=== PATIENT | female | born 1980 | race Caucasian/White ===

== ENCOUNTER 2018-01-19 17:14 | Emergency (ER) | payer SELFPAY ==
[2018-01-19] MEDS ORDERED: Diphtheria,Pertussis(Acell),Tetanus Vaccine 0.5 ML Syringe IM ONE (17:26)
[2018-01-19] MEDS ORDERED: Lidocaine 1% 20 ML MDV INJECT ONE (17:26)
--- NOTE | 2018-01-19 17:28 | EDM.PDOC ---
ED HPI GENERAL MEDICAL PROBLEM - General Chief Complaint: Laceration Stated Complaint: CUT LEFT ANN MARIE Time Seen by Provider: 01/19/18 17:27 Source of Information: Reports: Patient - History of Present Illness INITIAL COMMENTS - FREE TEXT/NARRATIVE: HISTORY AND PHYSICAL: History of present illness: [Patient cut the dorsum of her left thumb just prior to arrival tendon function intact pre-and post suture flexor and extensor entire limb neurovascularly intact No fever nausea vomiting chills sweats no redness warmth pus drainage ] Review of systems: As per history of present illness and below otherwise all systems reviewed and negative. Past medical history: As per history of present illness and as reviewed below otherwise noncontributory. Surgical history: As per history of present illness and as reviewed below otherwise noncontributory. Social history: No reported history of drug or alcohol abuse. Family history: As per history of present illness and as reviewed below otherwise noncontributory. Physical exam: HEENT: Atraumatic, normocephalic, pupils reactive, negative for conjunctival pallor or scleral icterus, mucous membranes moist, throat clear, neck supple, nontender, trachea midline. Lungs: Clear to auscultation, breath sounds equal bilaterally, chest nontender. Heart: S1S2, regular, negative for clicks, rubs, or JVD. Abdomen: Soft, nondistended, nontender. Negative for masses or hepatosplenomegaly. Negative for costovertebral tenderness. Pelvis: Stable nontender. Genitourinary: Deferred. Rectal: Deferred. Extremities: Atraumatic, negative for cords or calf pain. Neurovascular unremarkable. Neuro: Awake, alert, oriented. Cranial nerves II through XII unremarkable. Cerebellum unremarkable. Motor and sensory unremarkable throughout. Exam nonfocal. Skin as per history of present illness Left hand as per history of present illness 2 cm linear laceration Diagnostics: [Clinical ] Therapeutics: []T dap Lidocaine Wound cleansed and explored Tendon function intact flexor extensor pre-and post suture Standard wound care instructions #3 5-0 Prolene sutures interrupted Splint to promote healing Impression: [ 2 cm linear laceration ] Definitive disposition and diagnosis as appropriate pending reevaluation and review of above. left thumb laceration Pain Score (Numeric/FACES): 4 - Related Data Allergies Allergy/AdvReac Type Severity Reaction Status Date / Time No Known Allergies Allergy Verified 01/19/18 17:27 Home Meds: Home Meds Multivitamin [Multivitamins] 1 tab PO DAILY 01/19/18 [History] Naproxen Sodium [Aleve] 5 tab PO DAILY 01/19/18 [History] Peracardium 60 mg PO DAILY 01/19/18 [History] Rivaroxaban [Xarelto] 10 mg PO DAILY 01/19/18 [History] Sertraline [Zoloft] 200 mg PO DAILY 01/19/18 [History] ED ROS GENERAL - Review of Systems Review Of Systems: ROS reveals no pertinent complaints other than HPI. ED EXAM, SKIN/RASH Exam: See Below Course - Vital Signs Last Recorded V/S: Last Vital Signs Temp 97.6 F 01/19/18 17:25 Pulse 95 01/19/18 17:25 Resp 16 01/19/18 17:25 BP 131/96 H 01/19/18 17:25 Pulse Ox 95 01/19/18 17:25 - Orders/Labs/Meds Orders: Active Orders 24 hr Category Date Time Status Vaccines to be Administered [RC] PER UNIT ROUTINE Care 01/19/18 17:27 Active Meds: Medications Discontinued Medications Generic Name Dose Route Start Last Admin Trade Name Freq PRN Reason Stop Dose Admin Bacitracin 1 dose 01/19/18 17:44 Bacitracin Oint 1 Gm TOP 01/19/18 17:45 ONETIME ONE Diphtheria/Tetanus/Acell Pertussis 0.5 ml 01/19/18 17:26 01/19/18 17:36 Adacel IM 01/19/18 17:27 0.5 ml .ONCE ONE Administration Lidocaine HCl 20 ml 01/19/18 17:26 01/19/18 17:35 Xylocaine 1% INJECT 01/19/18 17:27 20 ml ONETIME ONE Administration Departure - Departure Time of Disposition: 17:47 Disposition: Home, Self-Care 01 Condition: Good Clinical Impression: Laceration - Discharge Information Referrals: PCP,None [Primary Care Provider] - Forms: ED Department Discharge Additional Instructions: Standard wound care instructions Keep wound clean and dry for 48 hours Neosporin bandage Splint to promote healing and protect wound for 48-72 hours Suture removal in 10 day Return to emergency room with redness warmth or pus drainage should this develop No indication for antibiotics at this time The following information is given to patients seen in the emergency department who are being discharged to home. This information is to outline your options for follow-up care. We provide all patients seen in our emergency department with a follow-up referral. The need for follow-up, as well as the timing and circumstances, are variable depending upon the specifics of your emergency department visit. If you don't have a primary care physician on staff, we will provide you with a referral. We always advise you to contact your personal physician following an emergency department visit to inform them of the circumstance of the visit and for follow-up with them and/or the need for any referrals to a consulting specialist. The emergency department will also refer you to a specialist when appropriate. This referral assures that you have the opportunity for follow-up care with a specialist. All of these measure are taken in an effort to provide you with optimal care, which includes your follow-up. Under all circumstances we always encourage you to contact your private physician who remains a resource for coordinating your care. When calling for follow-up care, please make the office aware that this follow-up is from your recent emergency room visit. If for any reason you are refused follow-up, please contact the [facility] emergency department at and asked to speak to the emergency department charge nurse. - My Orders Last 24 Hours: My Active Orders 01/19/18 17:27 Vaccines to be Administered [RC] PER UNIT ROUTINE - Assessment/Plan Last 24 Hours: My Active Orders 01/19/18 17:27 Vaccines to be Administered [RC] PER UNIT ROUTINE
[2018-01-19] MEDS ORDERED: Bacitracin Oint 1 GM U/D Packet TOP ONE (17:44)
== END 2018-01-19 17:54 | disposition home or self-care (01) ==
LOC: MW.ED 17:14
DX: S61.012A Laceration without foreign body of left thumb without damage to nail, initial encounter (principal); Z23 Encounter for immunization; Z79.899 Other long term (current) drug therapy; W26.0XXA Contact with knife, initial encounter
CPT/HCPCS: 90471; 90715; 99283-25

== ENCOUNTER 2018-04-24 18:23 | Emergency (ER) | payer OTHER ==
--- NOTE | 2018-04-24 19:09 | EDM.PDOC ---
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 Past medical history: As per history of present illness and as reviewed below otherwise noncontributory. Surgical history: As per history of present illness and as reviewed below otherwise noncontributory. Social history: No reported history of drug or alcohol abuse. Family history: As per history of present illness and as reviewed below otherwise noncontributory. Physical exam: Alert and oriented female answering questions appropriately in full sentences without any shortness of breath. Nontoxic in appearance HEENT: Atraumatic, normocehpalic, pupils reactive, negative for conjunctival pallor or scleral icterus, mucous membranes moist, throat clear, neck supple, nontender, trachea midline. Lungs: Clear to auscultation, breath sounds equal bilaterally, chest non tender. Heart: S1S2, regular, negative for clicks, rubs, or JVD. Abdomen: Soft, nondistended, nontender. Negative for masses or hepatossplenmegaly.Positive for left costovertebral tenderness. Pelvis: Stable nontender. Genitourinary: Deferred. Rectal: Deferred Extremities: Atraumatic, negative for cords or calf pain. Neurovascular unremarkable. Neuro: Awake, alert, oriented. Cranial nerves II through XII unremarkable. Cerebellum unremarkable. Motor and sensory unremarkable throughout. Exam nonfocal. Discussed with patient that her urine is positive for bacteria and nitrates will send for culture and notify her if this medication is not appropriate Diagnostics: []UA Urine culture Therapeutics: [] Impression: [Acute cystitis Plan: []Discharge Bactrim DS 1 twice a day 7 days Pyridium 100 mg 3 times a day 3 days Increase fluid intake Follow-up with your primary care provider Definitive disposition and diagnosis as appropriate pending reevaluation and review of above. Onset: Gradual Duration: Week(s): (3) Location: Reports: Back Bladder Pain Score (Numeric/FACES): 4 - Related Data Allergies Allergy/AdvReac Type Severity Reaction Status Date / Time No Known Allergies Allergy Verified 04/24/18 18:42 Home Meds: Home Meds Multivitamin [Multivitamins] 1 tab PO DAILY 01/19/18 [History] Naproxen Sodium [Aleve] 5 tab PO DAILY 01/19/18 [History] Peracardium 60 mg PO DAILY 01/19/18 [History] Rivaroxaban [Xarelto] 10 mg PO DAILY 01/19/18 [History] Sertraline [Zoloft] 200 mg PO DAILY 01/19/18 [History] Phenazopyridine HCl [Pyridium] 100 mg PO TID #9 tablet 04/24/18 [Rx] Sulfamethoxazole/Trimethoprim [Bactrim Ds Tablet] 1 each PO BID #20 tablet 04/24 [Rx] Past Medical History Cardiovascular 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: Blood Clots/VTE/DVT, Hypertension Respiratory 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: PE 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 SPECIALIST 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: Neurological 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: CVA, Headaches, Chronic Psychiatric 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: Anxiety, Depression Other Hematologic History: Lupus - Infectious Disease History Infectious Disease 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: Chicken Pox, Measles, Mumps - Past Surgical History HEENT Surgical 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: Myringotomy w Tube(s), Naso-Sinus Surgery Female Surgical 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: Hysterectomy, Tubal Ligation Musculoskeletal Surgical 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: Shoulder Replacement, Shoulder Surgery Social & Family History - Family History Family Medical History: Unobtainable Other Dermatologic Family History: adopted - Tobacco Use Smoking Status *Q: Never Smoker Second Hand Smoke Exposure: No - Caffeine Use Caffeine Use: Reports: None - Recreational Drug Use Recreational Drug Use: No ED ROS GENERAL - Review of Systems Review Of Systems: ROS reveals no pertinent complaints other than HPI. ED EXAM, GI/ABD - Physical Exam Exam: See Below Course - Vital Signs Last Recorded V/S: Last Vital Signs Temp 36.3 C 04/24/18 18:36 Pulse 73 04/24/18 18:36 Resp 20 04/24/18 18:36 BP 134/76 04/24/18 18:36 Pulse Ox 96 04/24/18 18:36 - Orders/Labs/Meds Orders: Active Orders 24 hr Category Date Time Status CULTURE URINE [RM] Stat Lab 04/24/18 19:00 Received UA W/MICROSCOPIC [URIN] Stat Lab 04/24/18 19:00 Ordered Labs: Laboratory Tests 04/24/18 Range/Units 19:00 Urine Color ORANGE Urine Appearance SLT CLOUDY Urine pH 5.0 (5.0-8.0) Ur Specific [place] >= 1.030 (1.001-1.035) Urine Protein 100 (NEGATIVE) mg/dL Urine Glucose (UA) 250 H (NEGATIVE) mg/dL Urine Ketones 15 H (NEGATIVE) mg/dL Urine Occult Blood LARGE H (NEGATIVE) Urine Nitrite POSITIVE H (NEGATIVE) Urine Bilirubin MODERATE H (NEGATIVE) Urine Ictotest NEGATIVE Urine Urobilinogen >=8.0 H (<2.0) EU/dL Ur Leukocyte Esterase MODERATE (NEGATIVE) Urine RBC 10-12 (0-2/HPF) Urine WBC 75-100 (0-5/HPF) Ur Epithelial Cells MODERATE (NONE-FEW) Urine Bacteria 1+ H (NEGATIVE) Urine Mucus MODERATE (NONE-MOD) Departure - Departure Time of Disposition: 19:51 Disposition: Home, Self-Care 01 Condition: Good Clinical Impression: UTI, Urinary tract infectious disease, Cystitis - Discharge Information *PRESCRIPTION DRUG MONITORING PROGRAM REVIEWED*: Not Applicable *COPY OF PRESCRIPTION DRUG MONITORING REPORT IN PATIENT [place]: Not Applicable Prescriptions: Phenazopyridine HCl [Pyridium] 100 mg PO TID #9 tablet Sulfamethoxazole/Trimethoprim [Bactrim Ds Tablet] 1 each PO BID #20 tablet Referrals: PCP,None [Primary Care Provider] - Forms: ED Department Discharge Additional Instructions: The following information is given to patients seen in the emergency department who are being discharged to home. This information is to outline your options for follow-up care. We provide all patients seen in our emergency department with a follow-up referral. The need for follow-up, as well as the timing and circumstances, are variable depending upon the specifics of your emergency department visit. If you don't have a primary care physician on staff, we will provide you with a referral. We always advise you to contact your personal physician following an emergency department visit to inform them of the circumstance of the visit and for follow-up with them and/or the need for any referrals to a consulting specialist. The emergency department will also refer you to a specialist when appropriate. This referral assures that you have the opportunity for followup care with a specialist. All of these measure are taken in an effort to provide you with optimal care, which includes your followup. Under all circumstances we always encourage you to contact your private physician who remains a resource for coordinating your care. When calling for followup care, please make the office aware that this follow-up is from your recent emergency room visit. If for any reason you are refused follow-up, please contact the [facility] emergency department at and asked to speak to the emergency department charge nurse. []Discharge Bactrim DS 1 twice a day 7 days Pyridium 100 mg 3 times a day 3 days Increase fluid intake Follow-up with your primary care provider Return to the emergency room as directed and discussed - My Orders Last 24 Hours: My Active Orders 04/24/18 19:00 CULTURE URINE [RM] Stat - Assessment/Plan Last 24 Hours: My Active Orders 04/24/18 19:00 CULTURE URINE [RM] Stat
== END 2018-04-24 20:08 | disposition home or self-care (01) ==
LOC: MW.ED 18:23
DX: N30.00 Acute cystitis without hematuria (principal); Z79.899 Other long term (current) drug therapy
CPT/HCPCS: 81001; 87086; 99283

== ENCOUNTER 2018-11-09 14:46 | Emergency (ER) | payer OTHER ==
[2018-11-09] MEDS ORDERED: Ibuprofen 800 MG Tab PO ONE (15:15)
--- NOTE | 2018-11-09 16:07 | EDM.PDOC ---
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 She states it hurts severely to walk. Any numbness or tingling no ankle pain or any other injuries. Review of systems: As per history of present illness and below otherwise all systems reviewed and negative. Past medical history: As per history of present illness and as reviewed below otherwise noncontributory. Surgical history: As per history of present illness and as reviewed below otherwise noncontributory. Social history: No reported history of drug or alcohol abuse. Family history: As per history of present illness and as reviewed below otherwise noncontributory. Physical exam: General: Well developed, well nourished in NAD HEENT: Atraumatic, normocephalic, pupils reactive, negative for conjunctival pallor or scleral icterus, mucous membranes moist, throat clear, neck supple, nontender, trachea midline. Lungs: Clear to auscultation, breath sounds equal bilaterally, chest nontender. Heart: S1S2, regular, negative for clicks, rubs, or JVD. Abdomen: NABS, Soft, nondistended, nontender. Negative for masses or hepatosplenomegaly. Negative for costovertebral tenderness. Pelvis: Stable nontender. Genitourinary: Deferred. Rectal: Deferred. Extremities: Tenderness over the right fifth metatarsal there is mild ecchymosis and minimal swelling present, wearing a tight Willie wrap around the foot and ankle to arrival. negative for cords or calf pain. Neurovascular unremarkable. Neuro: Awake, alert, oriented. Cranial nerves II through XII unremarkable. Cerebellum unremarkable. Motor and sensory unremarkable throughout. Exam nonfocal. Skin:warm and dry Diagnostics: X-ray right foot Therapeutics: Shortl leg cast and crutches ED Course: Unremarkable Impression: Fifth metatarsal fracture, nondisplaced Prescriptions: Tramadol Plan: follow-up with podiatry Definitive disposition and diagnosis as appropriate pending reevaluation and review of above. Right ankle Pain Score (Numeric/FACES): 5 - Related Data Allergies Allergy/AdvReac Type Severity Reaction Status Date / Time corn Allergy Rectal Verified 11/09/18 15:23 Bleeding tomato Allergy Rash Verified 11/09/18 15:23 wheat Allergy Rash Verified 11/09/18 15:23 Home Meds: Home Meds Multivitamin [Multivitamins] 1 tab PO DAILY 01/19/18 [History] Naproxen Sodium [Aleve] 5 tab PO DAILY 01/19/18 [History] Rivaroxaban [Xarelto] 10 mg PO DAILY 01/19/18 [History] Sertraline [Zoloft] 200 mg PO DAILY 01/19/18 [History] Dextroamphetamine/Amphetamine [Adderall] 30 mg PO DAILY 11/09/18 [History] hydroCHLOROthiazide [Hydrochlorothiazide] 1 tab PO DAILY 11/09/18 [History] traMADol HCl [Tramadol HCl] 50 mg PO Q6H PRN #20 tablet 11/09/18 [Rx] Past Medical History HEENT 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: None Cardiovascular 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: Blood Clots/VTE/DVT, Hypertension Respiratory 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: PE Gastrointestinal 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: None Genitourinary 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: None 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: Musculoskeletal 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: None Neurological 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: CVA, Headaches, Chronic Psychiatric 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: Anxiety, Depression Endocrine/Metabolic 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: None Other Hematologic History: Lupus Immunologic 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: None Oncologic (Cancer) 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: None Dermatologic 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: None - Infectious Disease History Infectious Disease 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: None - Past Surgical History Head Surgeries/Procedures: Reports: None HEENT Surgical 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: Myringotomy w Tube(s), Naso-Sinus Surgery Female Surgical 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: Hysterectomy, Tubal Ligation Musculoskeletal Surgical 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: Shoulder Replacement, Shoulder Surgery Social & Family History - Family History Family Medical History: Unobtainable Other Dermatologic Family History: adopted - Tobacco Use Smoking Status *Q: Never Smoker - Caffeine Use Caffeine Use: Reports: None - Recreational Drug Use Recreational Drug Use: No Review of Systems - Review of Systems Review Of Systems: ROS reveals no pertinent complaints other than HPI. ED EXAM, GENERAL - Physical Exam Exam: See Below (See history of present illness) Course - Vital Signs Last Recorded V/S: Last Vital Signs Temp 97.5 F 11/09/18 15:25 Pulse 72 11/09/18 15:25 Resp 16 11/09/18 15:25 BP 131/84 11/09/18 15:25 Pulse Ox 96 11/09/18 15:25 - Orders/Labs/Meds Orders: Active Orders 24 hr Category Date Time Status Splinting [RC] ASDIRECTED Care 11/09/18 16:07 Ordered Foot Comp Min 3V Rt [CR] Stat Exams 11/09/18 15:14 Taken Meds: Medications Discontinued Medications Generic Name Dose Route Start Last Admin Trade Name Freq PRN Reason Stop Dose Admin Ibuprofen 800 mg 11/09/18 15:15 11/09/18 15:23 Motrin PO 11/09/18 15:16 800 mg ONETIME ONE Administration Departure - Departure Time of Disposition: 16:08 Disposition: Home, Self-Care 01 Condition: Good Clinical Impression: Fracture of fifth metatarsal bone of right foot Qualifiers: Encounter type: initial encounter Fracture type: closed Fracture alignment: nondisplaced Qualified Code(s): S92.354A - Nondisplaced fracture of fifth metatarsal bone, right foot, initial encounter for closed fracture - Discharge Information *PRESCRIPTION DRUG MONITORING PROGRAM REVIEWED*: No *COPY OF PRESCRIPTION DRUG MONITORING REPORT IN PATIENT CORNEL[place]: No Prescriptions: traMADol HCl [Tramadol HCl] 50 mg PO Q6H PRN #20 tablet PRN Reason: Pain Referrals: PCP,None [Primary Care Provider] - Forms: ED Department Discharge Additional Instructions: The following information is given to patients seen in the emergency department who are being discharged to home. This information is to outline your options for follow-up care. We provide all patients seen in our emergency department with a follow-up referral. The need for follow-up, as well as the timing and circumstances, are variable depending upon the specifics of your emergency department visit. If you don't have a primary care physician on staff, we will provide you with a referral. We always advise you to contact your personal physician following an emergency department visit to inform them of the circumstance of the visit and for follow-up with them and/or the need for any referrals to a consulting specialist. The emergency department will also refer you to a specialist when appropriate. This referral assures that you have the opportunity for follow-up care with a specialist. All of these measure are taken in an effort to provide you with optimal care, which includes your follow-up. Under all circumstances we always encourage you to contact your private physician who remains a resource for coordinating your care. When calling for follow-up care, please make the office aware that this follow-up is from your recent emergency room visit. If for any reason you are refused follow-up, please contact the [facility] Emergency Department at and asked to speak to the emergency department charge nurse. Follow-up with podiatry, ice, elevate and keep splint on foot. DO NOT bear weight on this foot, use crutches for ambulation My Podiatry [facility] Dr Swenson, DPM Podiatry [address] [place] [address] - My Orders Last 24 Hours: My Active Orders 11/09/18 15:14 Foot Comp Min 3V Rt [CR] Stat 11/09/18 16:07 Splinting [RC] ASDIRECTED - Assessment/Plan Last 24 Hours: My Active Orders 11/09/18 15:14 Foot Comp Min 3V Rt [CR] Stat 11/09/18 16:07 Splinting [RC] ASDIRECTED
--- NOTE | 2018-11-09 16:12 | CR ---
INDICATION: Fall. TECHNIQUE: Three views of the right foot. COMPARISON: Under IMPRESSION: There is a nondisplaced transversely oriented fracture seen through the base of the 5th metatarsal. Dictated by Venkat Ontiveros MD @ 11/09/2018 4:11:34 PM Dictated by: Venkat Ontiveros MD @ 11/09/2018 16:11:37 (Electronically Signed)
== END 2018-11-09 16:45 | disposition home or self-care (01) ==
LOC: MW.ED 14:46
DX: S92.354A Nondisplaced fracture of fifth metatarsal bone, right foot, initial encounter for closed fracture (principal); I10 Essential (primary) hypertension; F41.9 Anxiety disorder, unspecified; F32.9 Major depressive disorder, single episode, unspecified; W00.0XXA Fall on same level due to ice and snow, initial encounter; Z91.048 Other nonmedicinal substance allergy status; Z79.899 Other long term (current) drug therapy
CPT/HCPCS: 73630; 99283; A9270

== ENCOUNTER 2018-12-27 10:31 | Day surgery (SDC) | payer OTHER, BC ==
[~2018-12-27 10:31] MED LIST: Lactated Ringers 1,000 ML IV SCH; ceFAZolin 2 GM in Premix Bag 1 BAG IV ONE
[2018-12-27] MEDS ORDERED: Lidocaine 2% 5 ML SDV ONE (11:08)
[2018-12-27] MEDS ORDERED: Ondansetron 4 MG/2 ML SDV ONE (11:08)
[2018-12-27] MEDS ORDERED: fentaNYL 250 MCG/5 ML SDV ONE (11:09)
[2018-12-27] MEDS ORDERED: Propofol 200 MG/20 ML SDV ONE (11:09)
[2018-12-27] MEDS ORDERED: Midazolam 1 MG/ML 2 ML SDV ONE (11:09)
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
[2018-12-27] MEDS ORDERED: Bupivacaine 0.5% 30 ML SDV ONE (11:18)
[2018-12-27] MEDS ORDERED: ceFAZolin 1 GM Vial ONE (11:24)
[2018-12-27] MEDS ORDERED: Sodium Chloride 0.9% 20 ML ONE (11:24)
[2018-12-27] MEDS ORDERED: Phenylephrine/Normal Saline 100 MCG/ML 10 ML Syringe ONE (12:27)
[2018-12-27] MEDS ORDERED: Glycopyrrolate 0.2 MG/ML SDV ONE (12:28)
[2018-12-27] MEDS ORDERED: Phenylephrine 1% 10 MG/ML SDV ONE (13:40)
[2018-12-27] MEDS ORDERED: fentaNYL 100 MCG/2 ML SDV ONE (13:48)
--- NOTE | 2018-12-27 14:00 | PN ---
IDENTIFICATION: The patient is a 38-year-old female. SURGEON: Bill Del Toro DPM. PLANNED PROCEDURE: Open reduction with internal fixation of 5th metatarsal fracture, right foot. ALLERGIES: The patient is allergic to cilantro, latex, and stainless steel. MEDICATIONS: 1. Adderall 20 mg b.i.d. 2. Flexeril 10 to 20 mg two times a day as needed. 3. Hydrochlorothiazide 50 mg daily with a second tablet daily as needed for swelling. 4. Nifedipine 60 mg daily. 5. Xarelto 20 mg daily. 6. Zoloft 300 mg daily. PAST SURGICAL HISTORY: 1. . 2. Hysterectomy. 3. Tonsillectomy. 4. Right shoulder repair. 5. Tubal ligation. 6. Left shoulder repair. 7. Nose surgery. No side effects to anesthesia has ever been noted. PAST MEDICAL HISTORY: Significant for lupus with anticoagulant disorder, ADHD, hypertension, and depression. LABORATORY DATA: White blood cell 4.18, red blood cell 4.43, hemoglobin 12.5, hematocrit 39.5, platelets 254. PT 11.4, INR 1.1, PTT 30. Glucose 131, calcium 9.5, BUN 24, creatinine 0.65. Sodium 141, potassium 3.7, chloride 106, and CO2 of 25. Chest x-ray showed no radiographic evidence of acute cardiopulmonary process. The patient did have an EKG in November and the EKG did show normal sinus rhythm. The patient was cleared for surgery by Dr. Timbo Webb with no contraindications to surgery. All risks and benefits of surgery have been discussed with the patient and all patient questions have been answered. No guarantees expressed or implied. Patient has been on hold with her Xarelto since yesterday morning. Plan is to resume it shortly after surgery. ALEX / JEREMIAH /[id number]
[2018-12-27] MEDS ORDERED: 50% Dextrose in Water 50 ML Syringe IVPUSH PRN (14:14)
[2018-12-27] MEDS ORDERED: Albuterol 0.083% 2.5 MG/3 ML Neb Soln NEB PRN (14:14)
[2018-12-27] MEDS ORDERED: Atropine 0.1 MG/ML 10 ML Syringe IVPUSH PRN ×2 (14:14)
[2018-12-27] MEDS ORDERED: fentaNYL 100 MCG/2 ML SDV IVPUSH PRN (14:14)
[2018-12-27] MEDS ORDERED: EPINEPHrine 1:10,000 1 MG/10 ML Syringe IVPUSH PRN (14:14)
[2018-12-27] MEDS ORDERED: Naloxone 0.4 MG/ML Syringe IVPUSH PRN (14:14)
--- NOTE | 2018-12-27 14:34 | PCM.OPNOTE ---
- General Post-Op/Procedure Note Date of Surgery/Procedure: 12/27/18 Operative Procedure(s): open reduction with internal fixation of fifth metatarsal fracture right foot Findings: consistent with diagnosis Pre Op Diagnosis: fracture of fifth metatarsal right foot Post-Op Diagnosis: fracture of fifth metatarsal right foot Anesthesia Technique: General LMA Primary Surgeon: Bill Del Toro Anesthesia Provider: Zach Romero Pathology: none EBL in mLs: 10 Complications: none Condition: Good Free Text/Narrative:: materials: Hai 5.0 mm x 42 mm titanium cannulated intramedullary screw, 4-0 vicryl, 4-0 prolene injectables: 8 ml 0.5% marcaine plain
--- NOTE | 2018-12-27 15:30 | CR ---
EXAMINATION: Right foot HISTORY: ORIF COMPARISON: 11/09/2018 TECHNIQUE: 5 fluoroscopic images provided FINDINGS/IMPRESSION: Operative control films demonstrate screw fixation of a proximal fifth metatarsal fracture. There is a moderate plantar calcaneal spur.
--- NOTE | 2018-12-27 15:48 | PCM48HPAN ---
Post Anesthesia Note - EVALUATION WITHIN 48HRS OF ANESTHETIC Vital Signs in Normal Range: Yes Patient Participated in Evaluation: Yes Respiratory Function Stable: Yes Airway Patent: Yes Cardiovascular Function Stable: Yes Hydration Status Stable: Yes Pain Control Satisfactory: Yes Nausea and Vomiting Control Satisfactory: Yes Mental Status Recovered: Yes Resp Rate: 18
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
== END 2018-12-27 16:06 | disposition home or self-care (01) ==
LOC: MW.SDS 10:31
PROVIDERS: ATTEND Podiatrist Foot & Ankle Surgery
DX: S92.351A Displaced fracture of fifth metatarsal bone, right foot, initial encounter for closed fracture (principal); I10 Essential (primary) hypertension; F32.9 Major depressive disorder, single episode, unspecified; F90.9 Attention-deficit hyperactivity disorder, unspecified type; D68.62 Lupus anticoagulant syndrome; E66.9 Obesity, unspecified; Z87.891 Personal history of nicotine dependence; Z79.01 Long term (current) use of anticoagulants; Z79.899 Other long term (current) drug therapy; Z91.040 Latex allergy status; X58.XXXA Exposure to other specified factors, initial encounter; Z91.018 Allergy to other foods
CPT/HCPCS: C1713; J0690; J2001; J2250; J2370; J2405; J2704; J3010; J3490; J7120

== ENCOUNTER 2019-10-23 17:43 | Emergency (ER) | payer BC ==
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
== END 2019-10-23 18:44 | disposition home or self-care (01) ==
LOC: MW.ED 17:43
DX: N39.0 Urinary tract infection, site not specified (principal); Z86.711 Personal history of pulmonary embolism; Z86.718 Personal history of other venous thrombosis and embolism; Z79.899 Other long term (current) drug therapy; E66.9 Obesity, unspecified; F41.9 Anxiety disorder, unspecified; F32.9 Major depressive disorder, single episode, unspecified; Z91.018 Allergy to other foods; Z96.22 Myringotomy tube(s) status; Z98.890 Other specified postprocedural states
CPT/HCPCS: 81001; 87086; 99283